=== PATIENT | male | born 1950 | race Caucasian/White ===

== ENCOUNTER 2023-03-17 18:33 | Inpatient (IN) | payer MEDICAID, MEDICARE ==
[2023-03-17 19:23] LABS: BASOPHILS PERCENT AUTO 0.1 % (0.1-1.3); HEMOGLOBIN 9.4 g/dL (12.9-16.9); IMMATURE GRAN PERCENT AUTO 0.3 % (0.0-0.7); LYMPHOCYTES ABSOLUTE AUTO 0.54 K/uL (0.8-3.3); LYMPHOCYTES PERCENT AUTO 7.9 % (11.4-47.7); MEAN CORPUSCULAR HGB CONC 30.3 g/dL (31.6-35.5); MEAN CORPUSCULAR VOLUME 75.8 fL (81.4-99.0); MONOCYTES PERCENT AUTO 8.8 % (3.3-12.6); NEUTROPHILS ABSOLUTE AUTO 5.65 K/uL (1.0-7.6); NEUTROPHILS PERCENT AUTO 82.9 % (40.0-78.1); PLATELET COUNT,PLT 142 K/uL (130-375); RED BLOOD CELL COUNT 4.09 M/uL (4.14-5.76); WHITE BLOOD CELL COUNT,WBC 6.8 K/uL (3.2-11.0)
[2023-03-17] MEDS ORDERED: Albuterol/Ipratropium 3.0-0.5 MG/3 ML Neb Soln NEB ONE (19:23)
[2023-03-17 19:24] LABS: BASE EXCESS VENOUS 0.4 mm/L; BICARBONATE,VENOUS 23.2 mmol/L; CARBOXYHEMOGLOBIN 2.4 % (0.0-1.6); METHEMOGLOBIN 0.8 %; O2 SATURATION VENOUS 39.3; PH,VENOUS 7.473 (7.350-7.450); TOTAL HEMOGLOBIN 9.8 g/dL (13.5-18.0)
[2023-03-17 19:25] LABS: BASOPHILS ABSOLUTE AUTO 0.01 K/uL (0.00-0.10); IMMATURE GRAN ABSOLUTE AUTO 0.02 K/uL (0.00-0.23); PO2 VENOUS 24.7 mm/Hg
[2023-03-17] MEDS: Dexamethasone 4 MG/ML SDV IVPUSH SCH (19:41)
[2023-03-17 19:51] LABS: A/G RATIO 0.7 (1.2-2.2); ALANINE AMINOTRANSFERASE,ALT 18 U/L (12-78); ALBUMIN 2.7 g/dL (3.4-5.0); ALKALINE PHOSPHATASE 68 U/L (46-116); ASPARTATE AMNIOTRANSFERASE,AST 20 U/L (15-37); BILIRUBIN TOTAL 0.8 mg/dL (0.2-1.0); BLOOD UREA NITROGEN,BUN 17 mg/dL (7-18); C-REACTIVE PROTEIN 17.85 mg/dL (<0.50); CALCIUM 7.8 mg/dL (8.5-10.1); CARBON DIOXIDE,CO2 24 mmol/L (21-32); CHLORIDE,CL 102 mmol/L (100-108); CREATININE 1.3 mg/dL (0.8-1.3); EST CRCL DRUG DOSING (CG) 54.59 mL/min; ESTIMATED GFR 59 mL/min (>60); GLUCOSE RANDOM 136 mg/dL (74-106); POTASSIUM,K 3.8 mmol/L (3.6-5.2); PRO B-TYPE NATRIUR PEPT,BNPPRO 187 pg/mL (5-125); PROTEIN TOTAL,TP 6.4 g/dL (6.4-8.2); SODIUM,NA 137 mmol/L (140-148)
[2023-03-17 19:52] LABS: ANION GAP 14.8 mmol/L (5.0-14.0)
[2023-03-17] MEDS ORDERED: Sodium Chloride 0.9% 1,000 ML IV ONE (19:57)
[2023-03-17] MEDS ORDERED: Acetaminophen 500 MG Tab PO ONE (19:58)
[2023-03-17] MEDS ORDERED: cefTRIAXone 2 GM in Sodium Chloride 0.9% 50 ML IV ONE (20:42)
[2023-03-17] MEDS: Azithromycin 250 MG Tab PO SCH (20:55)
[2023-03-17 21:39] LABS: CORONAVIRUS COVID-19 NAA POSITIVE (NEGATIVE); INFLUENZA A NAA NEGATIVE (NEGATIVE); INFLUENZA B NAA NEGATIVE (NEGATIVE); RESPIRATORY SYNCYTIAL VIR NAA NEGATIVE (NEGATIVE)
[2023-03-17] MEDS ORDERED: Furosemide 20 MG/2 ML VIAL IVPUSH ONE (22:01)
[2023-03-17] MEDS ORDERED: Promethazine 25 MG Tab PO PRN (22:03)
[2023-03-17] MEDS ORDERED: Albuterol/Ipratropium 3.0-0.5 MG/3 ML Neb Soln NEB PRN (22:03)
[2023-03-17] MEDS ORDERED: Ondansetron 4 MG Tab.DIS PO PRN (22:03)
[2023-03-17] MEDS ORDERED: Morphine 2 MG/ML SYRINGE IVPUSH PRN (22:03)
[2023-03-17] MEDS ORDERED: Acetaminophen/oxyCODONE 325-5 MG Tab PO PRN (22:03)
[2023-03-17] MEDS ORDERED: Ondansetron 4 MG/2 ML SDV IV PRN (22:03)
[2023-03-17] MEDS ORDERED: Naloxone 0.4 MG/ML SDV IVPUSH PRN (22:03)
[2023-03-17] MEDS ORDERED: Acetaminophen 325 MG Tab PO PRN (22:03)
[2023-03-17] MEDS ORDERED: REMDESIVIR 200 MG in Sodium Chloride 0.9% 250 ML IV ONE (22:17)
[2023-03-17] MEDS ORDERED: Metoprolol Tartrate 25 MG Tab PO ONE (23:15)
[2023-03-18] MEDS: Enoxaparin 40 MG/0.4 ML Syringe SUBCUT SCH ×2 (00:37→11:45)
[2023-03-18 05:56] LABS: IRON,FE 8 ug/dL (65-175); PERCENT FE SATURATION 4 % (20-55); TOTAL IRON BINDING CAPACITY 213 ug/dl (250-450)
[2023-03-18 06:24] LABS: A/G RATIO 0.6 (1.2-2.2); ALANINE AMINOTRANSFERASE,ALT 17 U/L (12-78); ALBUMIN 2.4 g/dL (3.4-5.0); ALKALINE PHOSPHATASE 63 U/L (46-116); ANION GAP 14.2 mmol/L (5.0-14.0); ASPARTATE AMNIOTRANSFERASE,AST 19 U/L (15-37); BILIRUBIN TOTAL 0.4 mg/dL (0.2-1.0); BLOOD UREA NITROGEN,BUN 16 mg/dL (7-18); CALCIUM 7.6 mg/dL (8.5-10.1); CARBON DIOXIDE,CO2 24 mmol/L (21-32); CHLORIDE,CL 104 mmol/L (100-108); EST CRCL DRUG DOSING (CG) 71.15 mL/min; ESTIMATED GFR 81 mL/min (>60); FERRITIN 127 ng/ml (8-388); FOLIC ACID 15.2 ng/ml (8.6-58.9); GLUCOSE RANDOM 172 mg/dL (74-106); POTASSIUM,K 4.2 mmol/L (3.6-5.2); PROTEIN TOTAL,TP 6.4 g/dL (6.4-8.2); SODIUM,NA 138 mmol/L (140-148)
[2023-03-18] MEDS: Azithromycin 250 MG Tab PO SCH (09:15)
[2023-03-18] MEDS: Losartan 25 MG Tab PO SCH (09:15)
[2023-03-18] MEDS ORDERED: Sodium Ferric Gluconate Cmplex 250 MG in Sodium Chloride 0.9% 100 ML IV ONE (10:00)
[2023-03-18] MEDS: Ferrous Sulfate 325 MG Tab PO SCH (16:58)
[2023-03-18] MEDS: Rivaroxaban 10 MG Tab PO SCH (16:59)
[2023-03-18] MEDS ORDERED: Non-Formulary Medication 1 Each (Rivaroxaban [Xarelto] 20 MG Tablet) PO SCH (17:00)
[2023-03-18] MEDS: Dexamethasone 4 MG/ML SDV IVPUSH SCH (20:47)
[2023-03-18] MEDS: REMDESIVIR 100 MG in Sodium Chloride 0.9% 100 ML IV SCH (20:47)
[2023-03-18] MEDS: Primidone 50 MG Tab PO SCH (20:58)
[2023-03-18] MEDS: Metoprolol Tartrate 25 MG Tab PO SCH (20:58)
[2023-03-18] MEDS: Gabapentin 300 MG Cap PO SCH (20:58)
[2023-03-18] MEDS: cefTRIAXone 1 GM in Sodium Chloride 0.9% 50 ML IV SCH (21:01)
[2023-03-19 05:52] LABS: HEMATOCRIT 28.5 % (38.4-49.7); HEMOGLOBIN 8.8 g/dL (12.9-16.9); MEAN CORPUSCULAR HEMOGLOBIN 23.3 pg (31.6-35.5); MEAN CORPUSCULAR HGB CONC 30.9 g/dL (31.6-35.5); MEAN CORPUSCULAR VOLUME 75.4 fL (81.4-99.0); RED BLOOD CELL COUNT 3.78 M/uL (4.14-5.76); WHITE BLOOD CELL COUNT,WBC 7.6 K/uL (3.2-11.0)
[2023-03-19 06:07] LABS: A/G RATIO 0.6 (1.2-2.2); ALANINE AMINOTRANSFERASE,ALT 16 U/L (12-78); ALBUMIN 2.3 g/dL (3.4-5.0); ALKALINE PHOSPHATASE 58 U/L (46-116); ANION GAP 9.3 mmol/L (5.0-14.0); ASPARTATE AMNIOTRANSFERASE,AST 17 U/L (15-37); BILIRUBIN TOTAL 0.3 mg/dL (0.2-1.0); BLOOD UREA NITROGEN,BUN 21 mg/dL (7-18); CALCIUM 7.8 mg/dL (8.5-10.1); CARBON DIOXIDE,CO2 25 mmol/L (21-32); CHLORIDE,CL 106 mmol/L (100-108); EST CRCL DRUG DOSING (CG) 71.15 mL/min; ESTIMATED GFR 81 mL/min (>60); GLUCOSE RANDOM 146 mg/dL (74-106); POTASSIUM,K 4.1 mmol/L (3.6-5.2); PROTEIN TOTAL,TP 5.9 g/dL (6.4-8.2); SODIUM,NA 140 mmol/L (140-148)
[2023-03-19] MEDS: Ferrous Sulfate 325 MG Tab PO SCH ×2 (08:16→16:23)
[2023-03-19] MEDS: Primidone 50 MG Tab PO SCH ×2 (08:17→20:30)
[2023-03-19] MEDS: Azithromycin 250 MG Tab PO SCH (08:17)
[2023-03-19] MEDS: Losartan 25 MG Tab PO SCH (08:17)
[2023-03-19] MEDS ORDERED: Sodium Ferric Gluconate Cmplex 250 MG in Sodium Chloride 0.9% 100 ML IV ONE (09:00)
[2023-03-19] MEDS: Rivaroxaban 10 MG Tab PO SCH (16:23)
[2023-03-19] MEDS: Dexamethasone 4 MG/ML SDV IVPUSH SCH (20:24)
[2023-03-19] MEDS: REMDESIVIR 100 MG in Sodium Chloride 0.9% 100 ML IV SCH (20:25)
[2023-03-19] MEDS: cefTRIAXone 1 GM in Sodium Chloride 0.9% 50 ML IV SCH (20:28)
[2023-03-19] MEDS: Metoprolol Tartrate 25 MG Tab PO SCH (20:29)
[2023-03-19] MEDS: Gabapentin 300 MG Cap PO SCH (20:30)
[2023-03-20 05:49] LABS: HEMATOCRIT 28.9 % (38.4-49.7); HEMOGLOBIN 8.8 g/dL (12.9-16.9); MEAN CORPUSCULAR HEMOGLOBIN 23.1 pg (31.6-35.5); MEAN CORPUSCULAR HGB CONC 30.4 g/dL (31.6-35.5); MEAN CORPUSCULAR VOLUME 75.9 fL (81.4-99.0); RED BLOOD CELL COUNT 3.81 M/uL (4.14-5.76); WHITE BLOOD CELL COUNT,WBC 7.8 K/uL (3.2-11.0)
[2023-03-20 06:07] LABS: A/G RATIO 0.7 (1.2-2.2); ALANINE AMINOTRANSFERASE,ALT 16 U/L (12-78); ALBUMIN 2.3 g/dL (3.4-5.0); ALKALINE PHOSPHATASE 57 U/L (46-116); ANION GAP 8.8 mmol/L (5.0-14.0); ASPARTATE AMNIOTRANSFERASE,AST 15 U/L (15-37); BILIRUBIN TOTAL 0.3 mg/dL (0.2-1.0); BLOOD UREA NITROGEN,BUN 21 mg/dL (7-18); CARBON DIOXIDE,CO2 24 mmol/L (21-32); CHLORIDE,CL 108 mmol/L (100-108); EST CRCL DRUG DOSING (CG) 71.15 mL/min; ESTIMATED GFR 81 mL/min (>60); GLUCOSE RANDOM 145 mg/dL (74-106); POTASSIUM,K 4.2 mmol/L (3.6-5.2); PROTEIN TOTAL,TP 5.8 g/dL (6.4-8.2); SODIUM,NA 141 mmol/L (140-148)
[2023-03-20] MEDS: Losartan 25 MG Tab PO SCH (08:40)
[2023-03-20] MEDS: Ferrous Sulfate 325 MG Tab PO SCH ×2 (08:40→16:49)
[2023-03-20] MEDS: Primidone 50 MG Tab PO SCH ×2 (08:40→20:29)
[2023-03-20] MEDS: Azithromycin 250 MG Tab PO SCH (08:40)
[2023-03-20] MEDS ORDERED: Morphine 2 MG/ML SYRINGE IVPUSH ONE (16:21)
[2023-03-20] MEDS ORDERED: Nitroglycerin 0.4 MG Tab.SL SL ONE (16:33)
[2023-03-20] MEDS: Rivaroxaban 10 MG Tab PO SCH (16:49)
[2023-03-20] MEDS: Gabapentin 300 MG Cap PO SCH (20:29)
[2023-03-20] MEDS: Dexamethasone 4 MG/ML SDV IVPUSH SCH (20:29)
[2023-03-20] MEDS: Metoprolol Tartrate 25 MG Tab PO SCH (20:30)
[2023-03-20] MEDS: REMDESIVIR 100 MG in Sodium Chloride 0.9% 100 ML IV SCH (20:30)
[2023-03-20] MEDS: cefTRIAXone 1 GM in Sodium Chloride 0.9% 50 ML IV SCH (20:30)
[2023-03-21] MEDS ORDERED: Cefdinir 300 MG Cap PO SCH
[2023-03-21 05:24] LABS: A/G RATIO 0.7 (1.2-2.2); ALANINE AMINOTRANSFERASE,ALT 17 U/L (12-78); ALBUMIN 2.3 g/dL (3.4-5.0); ALKALINE PHOSPHATASE 58 U/L (46-116); ANION GAP 7.6 mmol/L (5.0-14.0); ASPARTATE AMNIOTRANSFERASE,AST 15 U/L (15-37); BILIRUBIN TOTAL 0.3 mg/dL (0.2-1.0); BLOOD UREA NITROGEN,BUN 18 mg/dL (7-18); CALCIUM 7.8 mg/dL (8.5-10.1); CARBON DIOXIDE,CO2 25 mmol/L (21-32); CHLORIDE,CL 107 mmol/L (100-108); EST CRCL DRUG DOSING (CG) 71.15 mL/min; ESTIMATED GFR 81 mL/min (>60); GLUCOSE RANDOM 143 mg/dL (74-106); POTASSIUM,K 4.6 mmol/L (3.6-5.2); PROTEIN TOTAL,TP 5.7 g/dL (6.4-8.2); SODIUM,NA 140 mmol/L (140-148)
[2023-03-21] MEDS: Primidone 50 MG Tab PO SCH (08:08)
[2023-03-21] MEDS: Ferrous Sulfate 325 MG Tab PO SCH (08:08)
[2023-03-21] MEDS: Azithromycin 250 MG Tab PO SCH (08:08)
[2023-03-21] MEDS: Losartan 25 MG Tab PO SCH (08:08)
== END 2023-03-21 13:10 | disposition home or self-care (01) | DRG 177 ==
LOC: JP.ED 18:33 → JP.MS 22:04
PROVIDERS: ADMIT Family Medicine; ATTEND Internal Medicine
PROC: XW033E5 Introduction of Remdesivir Anti-infective into Peripheral Vein, Percutaneous Approach, New Technology Group 5 (ICD-10-PCS; principal; 2023-03-17)
PROC: 3E0333Z Introduction of Anti-inflammatory into Peripheral Vein, Percutaneous Approach (ICD-10-PCS; 2023-03-17)
PROC: 4A033R1 Measurement of Arterial Saturation, Peripheral, Percutaneous Approach (ICD-10-PCS; 2023-03-17)
PROC: 8E0ZXY6 Isolation (ICD-10-PCS; 2023-03-17)
DX: U07.1 COVID-19 (principal); J12.82 Pneumonia due to coronavirus disease 2019; I48.91 Unspecified atrial fibrillation; J96.01 Acute respiratory failure with hypoxia; J15.9 Unspecified bacterial pneumonia; I25.10 Atherosclerotic heart disease of native coronary artery without angina pectoris; I10 Essential (primary) hypertension; M19.90 Unspecified osteoarthritis, unspecified site; G62.9 Polyneuropathy, unspecified; G25.81 Restless legs syndrome; I48.0 Paroxysmal atrial fibrillation; D50.9 Iron deficiency anemia, unspecified; Z79.82 Long term (current) use of aspirin; Z79.899 Other long term (current) drug therapy; Z79.01 Long term (current) use of anticoagulants; Z95.5 Presence of coronary angioplasty implant and graft; Z86.16 Personal history of COVID-19; Z98.890 Other specified postprocedural states
CPT/HCPCS: 0241U; 36415; 71045; 80053; 82607; 82728; 82746; 82803; 83550; 83605; 83880; 84145; 84425; 84484; 85025; 85027; 86140; 94640; 96361; 96365; 96375; 99285; 93010; 99232; 99238; A9270-GY; J0696; J1100; J1940; J2916; J3490; J7030; J7050; J7620

== ENCOUNTER 2023-07-07 01:11 | Day surgery (SDC) | payer MEDICARE, MEDICAID ==
[2023-07-07] MEDS ORDERED: fentaNYL 50 MCG/ML SDV ONE (07:21)
[2023-07-07] MEDS ORDERED: Midazolam 1 MG/ML 2 ML SDV ONE (07:21)
[2023-07-07] MEDS ORDERED: Propofol 200 MG/20 ML SDV ONE ×2 (07:21→08:50)
[2023-07-07] MEDS: Lactated Ringers 1,000 ML IV SCH (07:54)
[2023-07-07] MEDS ORDERED: Lactated Ringers 1,000 ML ONE (09:17)
== END 2023-07-07 10:47 | disposition home or self-care (01) ==
LOC: JP.SDS 01:11
PROVIDERS: ATTEND Surgery
DX: D12.3 Benign neoplasm of transverse colon (principal); D12.2 Benign neoplasm of ascending colon; D12.5 Benign neoplasm of sigmoid colon; K57.30 Diverticulosis of large intestine without perforation or abscess without bleeding; I10 Essential (primary) hypertension; E78.5 Hyperlipidemia, unspecified; Z86.010 Personal history of colon polyps; Z88.8 Allergy status to other drugs, medicaments and biological substances
CPT/HCPCS: 43235; 45380; 45385; J2250; J2704; J3010; J7120; 88305

== ENCOUNTER 2024-01-11 11:54 | Emergency (ER) | payer MEDICAID, MEDICARE ==
[2024-01-11 12:15] LABS: BASOPHILS ABSOLUTE AUTO 0.03 K/uL (0.00-0.10); BASOPHILS PERCENT AUTO 0.5 % (0.1-1.3); EOSINOPHILS ABSOLUTE AUTO 0.08 K/uL (0.00-0.40); EOSINOPHILS PERCENT AUTO 1.3 % (0.0-5.4); HEMOGLOBIN 14.5 g/dL (12.9-16.9); IMMATURE GRAN PERCENT AUTO 0.3 % (0.0-0.7); LYMPHOCYTES ABSOLUTE AUTO 2.22 K/uL (0.8-3.3); LYMPHOCYTES PERCENT AUTO 35.4 % (11.4-47.7); MEAN CORPUSCULAR HEMOGLOBIN 30.1 pg (31.6-35.5); MEAN CORPUSCULAR HGB CONC 34.5 g/dL (31.6-35.5); MEAN CORPUSCULAR VOLUME 87.3 fL (81.4-99.0); MONOCYTES ABSOLUTE AUTO 0.74 K/uL (0.20-0.90); MONOCYTES PERCENT AUTO 11.8 % (3.3-12.6); NEUTROPHILS ABSOLUTE AUTO 3.18 K/uL (1.0-7.6); NEUTROPHILS PERCENT AUTO 50.7 % (40.0-78.1); PLATELET COUNT,PLT 133 K/uL (130-375); RED BLOOD CELL COUNT 4.81 M/uL (4.14-5.76); WHITE BLOOD CELL COUNT,WBC 6.3 K/uL (3.2-11.0)
[2024-01-11 12:16] LABS: IMMATURE GRAN ABSOLUTE AUTO 0.02 K/uL (0.00-0.23)
[2024-01-11 12:47] LABS: ANION GAP 10.4 mmol/L (5.0-14.0); CALCIUM 8.9 mg/dL (8.5-10.1); CREATININE 1.2 mg/dL (0.8-1.3); EST CRCL DRUG DOSING (CG) 54.34 mL/min
== END 2024-01-11 13:31 | disposition home or self-care (01) ==
LOC: JP.ED 11:54
DX: I49.3 Ventricular premature depolarization (principal); K21.00 Gastro-esophageal reflux disease with esophagitis, without bleeding; I10 Essential (primary) hypertension; I25.10 Atherosclerotic heart disease of native coronary artery without angina pectoris; Z79.899 Other long term (current) drug therapy; Z88.8 Allergy status to other drugs, medicaments and biological substances
CPT/HCPCS: 36415; 71046; 80048; 83880; 84484; 85025; 85379; 93005; 93010; 99284; 99285

== ENCOUNTER 2024-10-03 07:24 | Day surgery (SDC) | payer MEDICARE ==
[2024-10-03] MEDS: Lactated Ringers 1,000 ML IV SCH (08:05)
[2024-10-03] MEDS ORDERED: Midazolam 1 MG/ML 2 ML SDV ONE (08:05)
[2024-10-03] MEDS ORDERED: fentaNYL 50 MCG/ML SDV ONE (08:05)
[2024-10-03] MEDS ORDERED: Propofol 200 MG/20 ML SDV ONE (08:05)
== END 2024-10-03 10:28 | disposition home or self-care (01) ==
LOC: JP.SDS 07:24
PROVIDERS: ATTEND Surgery
DX: Z12.11 Encounter for screening for malignant neoplasm of colon (principal); D12.2 Benign neoplasm of ascending colon; D12.5 Benign neoplasm of sigmoid colon; K57.30 Diverticulosis of large intestine without perforation or abscess without bleeding; I11.0 Hypertensive heart disease with heart failure; I50.9 Heart failure, unspecified; I25.10 Atherosclerotic heart disease of native coronary artery without angina pectoris; Z88.8 Allergy status to other drugs, medicaments and biological substances; Z86.0100 Personal history of colon polyps, unspecified
CPT/HCPCS: 00811; 45385; J2250; J2704; J3010; J7120

== ENCOUNTER 2025-01-30 12:33 | Emergency (ER) | payer MEDICARE ==
[2025-01-30] MEDS ORDERED: Sodium Chloride 0.9% 10 ML Syringe FLUSH PRN (12:45)
[2025-01-30 12:54] LABS: BASOPHILS ABSOLUTE AUTO 0.02 K/uL (0.00-0.10); BASOPHILS PERCENT AUTO 0.3 % (0.1-1.3); EOSINOPHILS ABSOLUTE AUTO 0.06 K/uL (0.00-0.40); EOSINOPHILS PERCENT AUTO 0.9 % (0.0-5.4); IMMATURE GRAN ABSOLUTE AUTO 0.04 K/uL (0.00-0.23); IMMATURE GRAN PERCENT AUTO 0.6 % (0.0-0.7); LYMPHOCYTES ABSOLUTE AUTO 2.71 K/uL (0.8-3.3); LYMPHOCYTES PERCENT AUTO 40.1 % (11.4-47.7); MONOCYTES ABSOLUTE AUTO 0.77 K/uL (0.20-0.90); MONOCYTES PERCENT AUTO 11.4 % (3.3-12.6); NEUTROPHILS ABSOLUTE AUTO 3.16 K/uL (1.0-7.6); NEUTROPHILS PERCENT AUTO 46.7 % (40.0-78.1); PLATELET COUNT,PLT 122 K/uL (130-375); RED BLOOD CELL COUNT 5.18 M/uL (4.14-5.76); WHITE BLOOD CELL COUNT,WBC 6.8 K/uL (3.2-11.0)
[2025-01-30 13:22] LABS: A/G RATIO 1.0 (1.2-2.2); ALANINE AMINOTRANSFERASE,ALT 30 U/L (12-78); ASPARTATE AMNIOTRANSFERASE,AST 24 U/L (15-37); BILIRUBIN TOTAL 0.6 mg/dL (0.2-1.0); BLOOD UREA NITROGEN,BUN 20 mg/dL (7-18); CARBON DIOXIDE,CO2 28 mmol/L (21-32); CHLORIDE,CL 106 mmol/L (100-108); CREATININE 1.3 mg/dL (0.8-1.3); ESTIMATED GFR 58 mL/min (>60); GLUCOSE RANDOM 81 mg/dL (74-106); POTASSIUM,K 4.1 mmol/L (3.6-5.2); PRO B-TYPE NATRIUR PEPT,BNPPRO 212 pg/mL (5-125); PROTEIN TOTAL,TP 6.5 g/dL (6.4-8.2); SODIUM,NA 141 mmol/L (140-148); TROPONIN I HIGH SENSITIVITY 6.5 pg/mL (<=60.3)
== END 2025-01-30 14:58 | disposition home or self-care (01) ==
LOC: JP.ED 12:33
DX: R00.2 Palpitations (principal); I48.91 Unspecified atrial fibrillation; Z79.01 Long term (current) use of anticoagulants; I10 Essential (primary) hypertension; I25.10 Atherosclerotic heart disease of native coronary artery without angina pectoris; Z86.16 Personal history of COVID-19; Z88.8 Allergy status to other drugs, medicaments and biological substances; Z79.899 Other long term (current) drug therapy
CPT/HCPCS: 36415; 71045; 80053; 82272; 83605; 83880; 84484; 85025; 93005; 99285; J7030